=== PATIENT | male | born 2000 | race Caucasian/White ===

== ENCOUNTER 2022-04-15 22:34 | Emergency (ER) | payer BC ==
[2022-04-15] MEDS ORDERED: Ketorolac Tromethamine 30 MG/ML VIAL ONE (23:24)
== END 2022-04-16 00:40 | disposition home or self-care (01) ==
LOC: ERS 22:34
DX: S06.2X9A Diffuse traumatic brain injury with loss of consciousness of unspecified duration, initial encounter (principal); V18.0XXA Pedal cycle driver injured in noncollision transport accident in nontraffic accident, initial encounter
CPT/HCPCS: 70450; 70486; 72125; J1885

== ENCOUNTER 2022-04-16 10:08 | Emergency (ER) | payer BC, SELFPAY | END 2022-04-16 11:02 | disposition home or self-care (01) | LOC: ERS 10:08 | DX: S63.501A Unspecified sprain of right wrist, initial encounter (principal); V18.0XXA Pedal cycle driver injured in noncollision transport accident in nontraffic accident, initial encounter ==